=== PATIENT | female | born 1950 | race Caucasian/White ===

== ENCOUNTER 2022-07-04 13:55 | Outpatient (CLI) | payer MEDICARE, BC, SELFPAY ==
--- NOTE | 2022-07-04 14:00 | CRLHL7_ITS ---
For Patients: As a result of the Cures Act, medical imaging exams and procedure reports are released immediately into your electronic medical record. You may view this report before your referring provider. If you have questions, please contact your health care provider. BILATERAL SCREENING MAMMOGRAM WITH COMPUTER-AIDED DETECTION AND TOMOSYNTHESIS TECHNIQUE: CC and MLO views were obtained. These mammographic images have been obtained using full-field digital technique. These mammographic images were interpreted with the benefit of computer-aided detection. Breast tomosynthesis was used in this interpretation. COMPARISON FILM: 05/02/21, 07/01/18, 03/28/17. FINDINGS: The breasts are heterogeneously dense, which may obscure small masses. IMPRESSION: There is no radiographic evidence for malignancy. ASSESSMENT: BI-RADS Category 1: Negative RECOMMENDATION: Routine screening mammogram in 1 year. A lay language report of this examination will be provided to the patient. STEFFANY VARELA M.D. Diagnostic/Nuclear Medicine Radiologist [email or web address] Transcribed: 2:[address]/Dictated by: Steffany Varela MD @ 07/05/2022 8:23:00 AM (Electronically Signed)
== END 2022-07-04 13:56 | disposition home or self-care (01) ==
PROVIDERS: PCP Family Medicine; Visit Provider Family Medicine
DX: Z12.31 Encounter for screening mammogram for malignant neoplasm of breast (principal); R92.2 Inconclusive mammogram
CPT/HCPCS: 77063; 77067

== ENCOUNTER 2022-12-13 12:54 | Emergency (ER) | payer MEDICARE, BC, SELFPAY ==
[2022-12-13] VITALS (12 sets, daily range): BP systolic 125–152; BP diastolic 88–110; PULSE 74–97; RESP 18; TEMP 36.4–36.5; O2SAT 97–99; BMI 25.0
--- NOTE | 2022-12-13 13:17 | CRLHL7_ITS ---
For Patients: As a result of the Century Cures Act, medical imaging exams and procedure reports are released immediately into your electronic medical record. You may view this report before your referring provider. If you have questions, please contact your health care provider. INDICATION: Shortness of breath. History of atrial flutter. TECHNIQUE: Two-view chest. FINDINGS: Clear lungs. No pneumothorax, nodule, or infiltrate. No pleural effusion. Normal heart size. Sternotomy. Normal pulmonary venous vascularity. IMPRESSION: No acute cardiopulmonary process identified. Dictated by Stew Vazquez MD @ 12/13/2022 2:14:43 PM (Electronically Signed)
--- NOTE | 2022-12-13 13:18 | ED.GENADULT ---
HPI - General Adult General Time Seen by Provider: 13:18 Date Seen: 12/13/22 Chief complaint: Shortness of Breath/Dyspnea Stated complaint: Heart attack concern--lightheaded, pain down arm Time Seen by Provider: 12/13/22 13:06 History of Present Illness HPI narrative: Karen is a 9-year-old female past medical history includes atrial fibrillation on Eliquis, status post aortic valve sparing root replacement, Maze procedure 2018 presents emergency department with her friend via private car with shortness of breath, lightheadedness and pain down arm. Patient states that she was shopping with her friend this afternoon, she suddenly felt very weak and short of breath, she had to sit down and then laid down like she was going to pass out, she got nauseated, she had a sharpe of heat became diaphoretic, no vomiting and she did not pass out but was very lightheaded. When she got up she had a headache and some jaw pain which has resolved. Since her Maze procedure in 2018 she gets intermittent chest pains that radiate from her left arm across her chest 2 to 3 times month, she had this last time 3 days ago episode of vomiting, they were thinking it was due to some nerves that were cut during the procedure, she also gets intermittent jaw pain over the last week. Patient denies any pain at this time, she just feels weak at this time, she denies any orthopnea, cough fevers or chills, had been doing relatively well this morning, she is currently on prednisone for some arthritis. She denies any back pain or abdominal pain no urinary or bowel complaints. Has no history of CAD or stroke Related Data Home Medications Medication Instructions Recorded Confirmed apixaban 5 mg tablet (Eliquis) 5 mg PO BID 12/13/22 12/13/22 carvedilol 6.25 mg tablet 12.5 mg PO BID 12/13/22 12/13/22 escitalopram oxalate 10 mg tablet 10 mg PO DAILY 12/13/22 12/13/22 lorazepam 0.5 mg tablet 0.125 mg PO DAILY PRN 12/13/22 12/13/22 prednisone 5 mg tablet 7.5 mg PO DAILY 12/13/22 12/13/22 Allergies Allergy/AdvReac Type Severity Reaction Status Date / Time methadone Allergy Severe Verified 12/13/22 14:12 gabapentin [From Neurontin] Allergy Verified 12/13/22 14:12 morphine Allergy Verified 12/13/22 14:12 Sulfa (Sulfonamide Allergy Rash Verified 12/13/22 14:12 Antibiotics) Review of Systems Status of ROS: Reports: 10 or more systems reviewed and unremarkable except as noted in History and below PFS PFS Social History Smoking Status: Never smoker Do you use any of these nicotine containing products: None and E-Cigarettes Second hand tobacco smoke exposure: No How often do you have a drink containing alcohol: monthly or less How many standard drinks containing alcohol do you have on a typical day: 1 or 2 How often do you have six or more drinks on one occasion: Never AUDIT-C Alcohol total score: 1 Exam Narrative: Exam Narrative: General: No obvious distress, laying comfortably, no diaphoresis, non toxic HEENT: PERRL, EOMI Neck: Supple, no JVD Lungs: Clear to auscultation bilaterally Heart: Irregular irregular Abdomen: Soft, nontender, bowel sounds present Muscle skeletal: +1 pitting edema lower extremities Neuro: Alert awake and oriented x3 Const: Vital Signs, click to edit/add: Vital Signs - 24 hr 12/13/22 13:06 12/13/22 13:46 12/13/22 14:14 Temperature 97.5 F L Pulse Rate 82 Pulse Rate [Pulse Oximeter] 78 Pulse Rate [orthos tatic lying] 74 Pulse Rate [orthos tatic sitting] 74 Pulse Rate [orthos tatic standing] 85 Respiratory Rate 18 Blood Pressure Blood Pressure [Le ft Upper Arm] 143/110 H Blood Pressure [or thostatic lying Le ft Arm] 152/88 H Blood Pressure [or thostatic sitting Left Arm] 136/93 H Blood Pressure [or thostatic standing ] 125/97 H Pulse Oximetry 97 98 Oxygen Delivery Me thod Room Air 12/13/22 14:36 12/13/22 15:00 12/13/22 15:01 Temperature Pulse Rate 92 84 90 Pulse Rate [Pulse Oximeter] Pulse Rate [orthos tatic lying] Pulse Rate [orthos tatic sitting] Pulse Rate [orthos tatic standing] Respiratory Rate Blood Pressure 143/93 H Blood Pressure [Le ft Upper Arm] Blood Pressure [or thostatic lying Le ft Arm] Blood Pressure [or thostatic sitting Left Arm] Blood Pressure [or thostatic standing ] Pulse Oximetry 99 99 98 Oxygen Delivery Me thod 12/13/22 15:31 12/13/22 15:32 12/13/22 16:00 Temperature Pulse Rate 84 89 77 Pulse Rate [Pulse Oximeter] Pulse Rate [orthos tatic lying] Pulse Rate [orthos tatic sitting] Pulse Rate [orthos tatic standing] Respiratory Rate Blood Pressure 144/106 H Blood Pressure [Le ft Upper Arm] Blood Pressure [or thostatic lying Le ft Arm] Blood Pressure [or thostatic sitting Left Arm] Blood Pressure [or thostatic standing ] Pulse Oximetry 98 98 98 Oxygen Delivery Me thod 12/13/22 16:01 12/13/22 17:37 12/13/22 17:50 Temperature 97.7 F Pulse Rate 88 Pulse Rate [Pulse Oximeter] 80 97 Pulse Rate [orthos tatic lying] Pulse Rate [orthos tatic sitting] Pulse Rate [orthos tatic standing] Respiratory Rate 18 Blood Pressure 135/94 H Blood Pressure [Le ft Upper Arm] 139/98 H Blood Pressure [or thostatic lying Le ft Arm] Blood Pressure [or thostatic sitting Left Arm] Blood Pressure [or thostatic standing ] Pulse Oximetry 99 97 Oxygen Delivery Me thod Room Air Course Course Hospital Course: 1:15 PM: AIDET performed. Vitals stable at this time, mildly elevated blood pressure continue to monitor, workup will include IV peripheral, orthostatic blood pressure, troponin, CBC, CMP, portable XR chest portable and then CTA dissection protocol based on her history of aortic surgery, patient is pain free at this time. Patient had a recent echo 10/2022, showed an EF 50%, otherwise stable regards to her previous surgery. Differential diagnosis include but not limited to CAD/mi, PE, aortic dissection, pneumothorax,. Other considerations as pericarditis, myocarditis chest wall pain GERD esophageal rupture, vasovagal, dehydration viral illness as well although etiology Reevaluation(s) Reevaluation #1: EKG showed a atrial flutter with variable AV block nonspecific ST and T-wave abnormality, bpm 74, no acute ST-T elevation, the only previous ECG Epic 07/2019, this shows sinus rhythm with marked sinus arrhythmia with premature atrial complexes, ST T-wave abnormality was present, be p.m. 84, recent echo showed that she was in atrial fibrillation last month. Orthostatic showed from supine 152/88 to 125/97 standing, patient was asymptomatic Time: 14:07 Reevaluation #2: XR chest PA and lateral showed no acute cardiopulmonary process, but ahead and did a CT chest dissection protocol based on her history of ascending aortic valve sparing repair with tube graft, no acute aortic pathology. No evidence of intramural hematoma or dissection. Postsurgical changes with ascending aortic valve sparing repair with 2 graft. 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 First point of care troponin was 0.0, CBC and metabolic panel within normal limits, urinalysis showed no infection, urine culture pending. Plan to repeat Troponin. Patient feeling better after above care given. Repeat troponin was unchanged, spoke with cardiology [facility], discuss imaging with the provider, since there is no evidence of intramural hematoma or dissection, reassuring labs and troponins to discharge and follow up with her supervisor [employer] Dr. Welsh. This discussed with patient she was in agreement, reasons return were given. Vital Signs Vital signs: Initial Vital Signs Temperature 97.5 F L 12/13/22 13:06 Temperature Source Temporal Artery Scan 12/13/22 13:06 Pulse Rate 78 12/13/22 13:06 Pulse Rhythm Regular 12/13/22 13:06 Respiratory Rate 18 12/13/22 13:06 Blood Pressure 143/110 H 12/13/22 13:06 Blood Pressure Mean 121 H 12/13/22 13:06 Blood Pressure Position Supine 12/13/22 13:06 Pulse Oximetry 97 12/13/22 13:06 Oxygen Delivery Method Room Air 12/13/22 13:06 Vital Signs Temperature 97.5 F L 12/13/22 13:06 Pulse Rate 78 12/13/22 13:06 Respiratory Rate 18 12/13/22 13:06 Blood Pressure 143/110 H 12/13/22 13:06 Pulse Oximetry 97 12/13/22 13:06 Oxygen Delivery Method Room Air 12/13/22 13:06 Temperature 97.7 F 12/13/22 17:37 Pulse Rate 97 12/13/22 17:50 Respiratory Rate 18 12/13/22 17:37 Blood Pressure 139/98 H 12/13/22 17:37 Pulse Oximetry 97 12/13/22 17:37 Oxygen Delivery Method Room Air 12/13/22 17:37 Medical Decision Making Lab Data Labs: Lab Results 12/13/22 12/13/22 Range/Units 13:30 16:14 WBC 9.92 (4.50-11.00) K/uL RBC 4.61 (4.00-5.20) m/uL Hgb 13.4 (12.0-16.0) gm/dL Hct 41.5 (33.0-51.0) % MCV 90 (80-100) fL MCH 29 (26-34) pg MCHC 32 (32-36) gm/dL RDW Coeff of [place] 12.8 (11.5-15.5) % Plt Count 224 (140-440) K/uL Neut % (Auto) 79.9 H (42.0-72.0) % Lymph % (Auto) 13.3 L (20-44) % [place] % (Auto) 5.3 (0.0-11.0) % Eos % (Auto) 0.8 (0.0-7.0) % Baso % (Auto) 0.6 (0.0-3.0) % Neut # (Auto) 7.90 H (1.7-7.0) K/uL Lymph # (Auto) 1.30 (0.90-2.90) K/uL [place] # (Auto) 0.50 (0.00-0.90) K/UL Eos # (Auto) 0.08 (0.00-0.50) K/uL Baso # (Auto) 0.06 (0.00-0.30) K/uL INR 1.15 H (0.91-1.10) Sodium 135 (135-149) mmol/L Potassium 4.1 (3.6-5.1) mmol/L Chloride 104 (96-114) mmol/L Carbon Dioxide 26 (20-32) mmol/L BUN 14 (7-30) mg/dL Creatinine 0.7 (0.5-1.5) mg/dL Estimated Creat Clear 58.51 Estimated GFR 93 ml/min Glucose 97 (60-115) mg/dL Calcium 8.9 (8.4-10.6) mg/dL Total Bilirubin 1.1 (0.1-1.5) mg/dL AST 35 (12-35) U/L ALT 26 (4-35) U/L Alkaline Phosphatase 60 (40-150) U/L Troponin I < 0.01 L (0.01-0.04) ng/mL NT-Pro-B Natriuret Pep 4140 pg/mL Total Protein 7.2 (6.0-8.3) g/dL Albumin 4.2 (3.3-5.0) g/dL Urine Color Yellow (Yellow) Urine Appearance Slightly Cloudy A (Clear) Urine pH 8.5 (5.0-8.5) Ur Specific [place] 1.020 (1.000-1.030) Urine Protein 1+ A (Negative) Urine Glucose (UA) Negative (Negative) Urine Ketones Negative (Negative) Urine Blood Negative (Negative) Urine Nitrite Negative (Negative) Urine Bilirubin 1+ A (Negative) Urine Urobilinogen 0.2 (0.2-1.0) Ur Leukocyte Esterase Negative (Negative) Urine RBC 0-2 (0-2) Urine WBC 0-2 (0-5) Ur Squamous Epith Cells Moderate A (None-Few) Amorphous Sediment Many A (None) Urine Bacteria Moderate A (None) Hyaline Casts Few (None-Few) POC Troponin I 0.00 L (0.01-0.04) ng/ml Discharge Plan Discharge Clinical Impression: Light-headedness, Chest pain, H/O aortic root repair, Shortness of breath Patient Disposition: Home, Self-Care Condition: Improved Instructions: Chest Pain (ED), Lightheadedness (ED) Additional Instructions: To follow-up with cardiology [facility] Dr. Welsh and the next 7-10 days, follow-up with primary care provider as well, return if any worsening symptoms. Activity Level: No Restrictions and Activity as Tolerated Prescriptions: No Action carvedilol 6.25 mg tablet 12.5 mg PO BID prednisone 5 mg tablet 7.5 mg PO DAILY lorazepam 0.5 mg tablet 0.125 mg PO DAILY PRN escitalopram oxalate 10 mg tablet 10 mg PO DAILY Eliquis 5 mg tablet 5 mg PO BID Follow Up/Referrals: Ebony Castillo DO [Primary Care Provider] - Stand Alone Forms: MyHealth Info Instructions
--- NOTE | 2022-12-13 13:44 | CRLHL7_ITS ---
For Patients: As a result of the 21st Century Cures Act, medical imaging exams and procedure reports are released immediately into your electronic medical record. You may view this report before your referring provider. If you have questions, please contact your health care provider. CLINICAL INFORMATION: Aortic aneurysm, lightheadedness. TECHNIQUE: Non contrast CT of the chest followed by arterial phase CT angiogram of the chest, abdomen and pelvis were obtained. No enteric contrast was administered and therefore the study has decreased sensitivity for detection of bowel pathology. 3D and/or MIP angiographic reconstructions were performed on a separate independent workstation with concurrent supervision of the image post processing in order to further delineate the angiographic anatomy for accurate interpretation. Contrast: 95 mL of Isovue 370 intravenous contrast was injected uneventfully prior to image acquisition. Radiation Dose Estimate (Total Exam DLP): 669 mGy-cm. COMPARISON: CT angiogram chest, abdomen, and pelvis 09/21/2018. FINDINGS: CT Angiography Findings: Heart/Pericardium: Unremarkable. Thoracic Aorta: No acute aortic pathology. No evidence of intramural hematoma or dissection. Stable postsurgical changes of the ascending aorta with tube graft repair. There is stable aneurysmal dilatation of the proximal ascending aorta just distal to the tube graft measuring up to 5.2 cm, grossly stable the prior exams. Great Vessels: Patent. Abdominal aorta: Tortuous in course but otherwise normal in caliber. No aneurysm or dissection. Celiac axis: Patent. Superior mesenteric artery: Patent. Inferior mesenteric artery: Patent. LEFT Renal: Patent. RIGHT Renal: Patent. RIGHT lower extremity : Common iliac artery: Patent. Internal iliac artery: Patent. External iliac artery: Patent. Common femoral artery: Patent. LEFT lower extremity: Common iliac artery: Patent. Internal iliac artery: Patent. External iliac artery: Patent. Common femoral artery: Patent. Visceral Findings: Chest: Thyroid: Unremarkable Lungs: Mild bibasilar dependent atelectatic changes. No focal airspace opacities or pleural effusions. Lymph Nodes: No significant axillary, mediastinal, or hilar lymphadenopathy. Abdomen/Pelvis: Liver: Stable benign appearing cysts. Non cirrhotic morphology. Gallbladder: Unremarkable. Spleen: Unremarkable. Adrenal glands: Unremarkable. Kidneys: Unremarkable. Pancreas: Stable 12 mm cystic lesion in the uncinate process. Lymph nodes: No retroperitoneal, mesenteric, inguinal, or pelvic adenopathy by CT criteria. Bowel: Evaluation is limited without enteric contrast. Grossly unremarkable. Urinary bladder: Limited evaluation due to underdistention. No gross pathology. Reproductive structures: Unremarkable for patient`s age. No abdominal/pelvis ascites or free intraperitoneal air. Musculoskeletal: Status post sternotomy. There is osseous structures demonstrate diffuse degenerative changes. Grade 1 retrolisthesis of L2 on L3 and grade 1 anterolisthesis of L4 on L5, stable to the prior exam. IMPRESSION: 1. No acute aortic pathology. No evidence of intramural hematoma or dissection. 2. Postsurgical changes with ascending aortic valve sparing repair with tube graft. There is still persisting aneurysmal dilatation of the proximal descending aorta just distal to the repair site measuring up to 5.2 cm. 3. Stable appearing 12 mm cystic lesion in the pancreatic uncinate process may represent side branch abdomen. Recommend evaluation with MRI/MRCP in 1 year. Please note that all CT scans at this facility use dose modulation, iterative reconstruction, and/or weight-based dosing when appropriate to reduce radiation dose to as low as reasonably achievable. Dictated by Yasmany Rodriges MD @ 12/13/2022 3:35:16 PM (Electronically Signed)
[2022-12-13 14:06] LABS: INR 1.15 (0.91-1.10); Prothrombin Time 15.4 Seconds
[2022-12-13 14:10] LABS: Basophils Absolute Auto 0.06 K/uL (0.00-0.30); Basophils Percent Auto 0.6 % (0.0-3.0); Eosinophils Absolute Auto 0.08 K/uL (0.00-0.50); Eosinophils Percent Auto 0.8 % (0.0-7.0); Hematocrit 41.5 % (33.0-51.0); Hemoglobin* 13.4 gm/dL (12.0-16.0); Immature Granulocytes Abs Auto 0.01 K/uL (0.00-0.30); Immature Granulocytes Pct Auto 0.1 %; Lymphocytes Percent Auto 13.3 % (20-44); Mean Corpuscular HGB Conc 32 gm/dL (32-36); Mean Corpuscular Hemoglobin 29 pg (26-34); Mean Corpuscular Volume 90 fL (80-100); Monocytes Percent Auto 5.3 % (0.0-11.0); Neutrophils Percent Auto 79.9 % (42.0-72.0); Platelet Count* 224 K/uL (140-440); RDW Coefficient of Variation % 12.8 % (11.5-15.5); Red Blood Count 4.61 m/uL (4.00-5.20); White Blood Count* 9.92 K/uL (4.50-11.00)
[2022-12-13 14:12] LABS: Albumin* 4.2 g/dL (3.3-5.0); Chloride* 104 mmol/L (96-114); Potassium* 4.1 mmol/L (3.6-5.1); Sodium* 135 mmol/L (135-149)
[2022-12-13 14:14] LABS: Creatinine* 0.7 mg/dL (0.5-1.5); Est. Creatinine Clearance* 58.51; Estimated Glomerular Filt Rate 93 ml/min
[2022-12-13 14:15] LABS: Alanine Aminotransferase* 26 U/L (4-35); Alkaline Phosphatase* 60 U/L (40-150); Aspartate Amino Transferase* 35 U/L (12-35); Bilirubin Total* 1.1 mg/dL (0.1-1.5); Blood Urea Nitrogen* 14 mg/dL (7-30); Calcium* 8.9 mg/dL (8.4-10.6); Carbon Dioxide* 26 mmol/L (20-32); Glucose* 97 mg/dL (60-115); Total Protein* 7.2 g/dL (6.0-8.3)
[2022-12-13 14:19] LABS: Slide Review Reflex No
[2022-12-13 14:26] LABS: NT Pro B Type NatriureticPept* 4140 pg/mL
[2022-12-13] MEDS: 0.9 % SODIUM CHLORIDE 500 ML 500 ML IV (15:17)
[2022-12-13 15:22] LABS: Appearance Urine Slightly Cloudy (Clear); Bilirubin Urine 1+ (Negative); Blood Urine Negative (Negative); Color Urine Yellow (Yellow); Glucose Urine Negative (Negative); Ketones Urine Negative (Negative); Leukocyte Esterase Urine Negative (Negative); Nitrite Urine Negative (Negative); Protein Urine 1+ (Negative); Urobilinogen Urine 0.2 (0.2-1.0); pH Urine 8.5 (5.0-8.5)
[2022-12-13 15:33] LABS: Amorphous Sediment Urine Many; Bacteria Urine Moderate; RBC Urine 0-2 (0-2); Squamous Epithelial Cell Urine Moderate (None-Few); WBC Urine 0-2 (0-5)
[2022-12-13 15:35] LABS: Hyaline Casts Urine Few (None-Few)
--- NOTE | 2022-12-13 16:55 | ED.NURSE ---
Attempted to reach [place] to update about admission. Called multiple times with no answer.
[2022-12-13 16:57] LABS: Troponin I* < 0.01 ng/mL (0.01-0.04)
== END 2022-12-13 17:51 | disposition home or self-care (01) ==
PROVIDERS: Emergency Provider Student in an Organized Health Care Education/Training Program; PCP Family Medicine
DX: R42 Dizziness and giddiness (principal); R07.89 Other chest pain
CPT/HCPCS: 36415; 71046; 71270; 74177; 80053; 81001; 83880; 84484; 85025; 85610; 87086; 93005; 94761; 99283; 99284; 99285; J7120; Q9967

== ENCOUNTER 2023-05-06 14:45 | Outpatient (RCR) | payer MEDICARE, BC, SELFPAY | END 2023-05-06 15:38 | disposition home or self-care (01) | PROVIDERS: PCP Family Medicine; Visit Provider Family Medicine | DX: S03.00XD Dislocation of jaw, unspecified side, subsequent encounter (principal); R68.84 Jaw pain; M62.9 Disorder of muscle, unspecified; R29.3 Abnormal posture; Z51.89 Encounter for other specified aftercare | CPT/HCPCS: 97110; 97140; 97161 ==

== ENCOUNTER 2023-07-19 11:38 | Outpatient (CLI) | payer MEDICARE, BC, SELFPAY ==
--- NOTE | 2023-07-19 11:30 | CRLHL7_ITS ---
For Patients: As a result of the Century Cures Act, medical imaging exams and procedure reports are released immediately into your electronic medical record. You may view this report before your referring provider. If you have questions, please contact your health care provider. BILATERAL SCREENING MAMMOGRAM WITH COMPUTER-AIDED DETECTION AND TOMOSYNTHESIS TECHNIQUE: CC and MLO views were obtained. These mammographic images have been obtained using full-field digital technique. These mammographic images were interpreted with the benefit of computer-aided detection. Breast Tomosynthesis was used in this interpretation. COMPARISON FILM: 07/04/22, 05/02/21, 07/01/18. FINDINGS: The breasts are heterogeneously dense, which may obscure small masses IMPRESSION: There is no radiographic evidence for malignancy. ASSESSMENT: BI-RADS Category 1: Negative RECOMMENDATION: Routine screening mammogram in 1 year. A lay language report of this examination will be provided to the patient. Dre De Leon M.D. Diagnostic Radiologist [email or web address] Transcribed: 5:52 [email or web address] by: Dre De Leon MD @ 07/22/2023 12:22:00 PM (Electronically Signed)
== END 2023-07-19 11:39 | disposition home or self-care (01) ==
LOC: MAMMO 11:40
PROVIDERS: PCP Family Medicine; Visit Provider Family Medicine
DX: Z12.31 Encounter for screening mammogram for malignant neoplasm of breast (principal); R92.2 Inconclusive mammogram
CPT/HCPCS: 77063; 77067

== ENCOUNTER 2024-10-04 15:07 | Outpatient (CLI) | payer MEDICARE, BC, SELFPAY | END 2024-10-04 15:08 | disposition home or self-care (01) | LOC: NFLDREF 10-07 06:23 | PROVIDERS: PCP Family Medicine; Referring Provider Family Medicine; Visit Provider Nurse Practitioner | DX: N30.01 Acute cystitis with hematuria (principal) | CPT/HCPCS: 87086 ==